=== PATIENT | female | born 1955 | race Caucasian/White ===

== ENCOUNTER 2018-02-04 05:33 | Day surgery (SDC) | payer OTHER, MEDICAID ==
[~2018-02-04] VITALS: Ht 160 cm; Wt 87.5 kg
[2018-02-04] MEDS ORDERED: BUPIVACAINE HCL/PF 0.5% (5MG/ML) 10ML ONE (07:12)
[2018-02-04] MEDS ORDERED: NORMAL SALINE 0.9% 10 ML SYR ONE (07:12)
[2018-02-04] MEDS ORDERED: BACITRACIN 50,000 UNITS/VIAL ONE (07:13)
[2018-02-04] MEDS ORDERED: LIDOCAINE HCL/PF 1% 10 MG/ML 5ML VIAL ONE (07:13)
[2018-02-04] MEDS ORDERED: SKIN ADHESIVE 0.7 GM EA TOP ONE (07:35)
[2018-02-04] MEDS ORDERED: FENTANYL CITRATE/PF 50MCG/ML 2ML VIAL ONE (07:37)
[2018-02-04] MEDS ORDERED: MIDAZOLAM HCL 2 MG/2 ML VIAL ONE (07:37)
[2018-02-04] MEDS ORDERED: PROPOFOL 200MG/20ML VIAL IV ONE (07:37)
[2018-02-04] MEDS ORDERED: DEXAMETHASONE 4MG/ML 1ML VIAL ONE (08:00)
[2018-02-04] MEDS ORDERED: POLY35GE VG (08:10)
[2018-02-04] MEDS ORDERED: LETR2.5T6 PO (08:10)
[2018-02-04] MEDS ORDERED: ALBU18HF2 IH (08:10)
[2018-02-04] MEDS ORDERED: PALB75CA PO (08:10)
[2018-02-04] MEDS ORDERED: GABA-531 PO (08:10)
[2018-02-04] MEDS ORDERED: MEPERIDINE HCL/PF 25MG/ML CPJ IV PRN (08:15)
[2018-02-04] MEDS ORDERED: LABETALOL 5MG/ML SYR 20 MG/4 ML SYRINGE IV PRN (08:15)
[2018-02-04] MEDS ORDERED: HYDROMORPHONE HCL/PF 2MG/ML CPJ IV PRN (08:15)
[2018-02-04] MEDS ORDERED: ONDANSETRON HCL 4MG/2ML INJ IV PRN (08:15)
[2018-02-04] MEDS ORDERED: ONDANSETRON HCL 4MG/2ML INJ ONE (08:23)
[2018-02-04 08:57] LABS: CLARITY URINE CLEAR (CLEAR); COLOR URINE YELLOW (YELLOW); PH URINE 5.5 (4.5-8.0); PROTEIN URINE NEGATIVE (NEGATIVE); SPECIFIC GRAVITY URINE 1.022 (1.005-1.030)
[2018-02-04 08:58] LABS: KETONES URINE TRACE (NEGATIVE); NITRITE URINE NEGATIVE (NEGATIVE); OCCULT BLOOD URINE TRACE (NEGATIVE); UROBILINOGEN URINE 0.2 E.U./dL (0.2-1.0)
[2018-02-04 08:59] LABS: LEUKOCYTE ESTERASE URINE 1+ (NEGATIVE)
== END 2018-02-04 10:15 | disposition home or self-care (01) ==
LOC: OR 05:33
PROVIDERS: ATTEND Specialist
DX: L72.0 Epidermal cyst (principal); J45.909 Unspecified asthma, uncomplicated; Z79.899 Other long term (current) drug therapy; Z85.3 Personal history of malignant neoplasm of breast; Z98.890 Other specified postprocedural states; Z88.8 Allergy status to other drugs, medicaments and biological substances; Z90.13 Acquired absence of bilateral breasts and nipples
CPT/HCPCS: 11404; 81003; 88305; A4216; J1100; J2250; J2405; J3010; J3490; J2704; J7120